=== PATIENT | female | born 1985 | race Caucasian/White ===

== ENCOUNTER 2023-04-09 13:35 | Emergency (ER) | payer OTHER | END 2023-04-09 14:20 | disposition home or self-care (01) | LOC: JD.ED 13:35 | DX: S05.02XA Injury of conjunctiva and corneal abrasion without foreign body, left eye, initial encounter (principal); Z91.040 Latex allergy status; W22.09XA Striking against other stationary object, initial encounter | CPT/HCPCS: 99283; 99284 ==